=== PATIENT | female | born 1980 | race Caucasian/White ===

== ENCOUNTER → 2020-12-17 | Outpatient (CLI) | payer OTHER ==
[~2020-12-17] MED LIST: FLEXERIL 10 MG10 MG PO; FLONASE 0.05% N16 GM; IBUPROFEN400 MG PO; KEFLEX500 MG PO; PERCOCET 10-321 EACH PO; VITAMIN C 500500 MG PO
== END ==
LOC: KOH-I 08:40
DX: M79.672 Pain in left foot (principal)
CPT/HCPCS: 73630

== ENCOUNTER → 2021-01-05 | Outpatient (CLI) | payer OTHER | LOC: KOH-I 12-30 08:45 | DX: M79.672 Pain in left foot (principal); M72.2 Plantar fascial fibromatosis; M19.072 Primary osteoarthritis, left ankle and foot | CPT/HCPCS: 73718 ==

== ENCOUNTER → 2021-08-02 | Outpatient (CLI) | payer OTHER | LOC: KOH-I 10:00 | DX: M79.672 Pain in left foot (principal) | CPT/HCPCS: 73630 ==

== ENCOUNTER → 2022-07-06 | Outpatient (CLI) | payer OTHER ==
[~2022-07-06] MED LIST changes: +ASPIRIN EC81 MG PO; +AZELASTINE137 MCG/0.; +LEVOCETIRIZINE D5 MG PO; +LISINOPRIL10 MG PO; +PROAIR HFA8.5 GM INH; +SINGULAIR10 MG PO
[2022-07-06 11:47] LABS: HEMOGLOBIN 12.3 gm/dl (12.3-15.3); RED BLOOD COUNT 4.49 M/UL (4.00-5.10); WHITE BLOOD COUNT 7.7 K/UL (4.5-11.0)
[2022-07-06 12:07] LABS: BUN/CREATININE RATIO 15 (0-10)
== END ==
LOC: OPSV2 10:00
PROVIDERS: Podiatrist Foot & Ankle Surgery
DX: Z01.812 Encounter for preprocedural laboratory examination (principal); D36.10 Benign neoplasm of peripheral nerves and autonomic nervous system, unspecified
CPT/HCPCS: 80048; 85027

== ENCOUNTER → 2022-07-15 | Day surgery (SDC) | payer OTHER ==
[~2022-07-15] MED LIST changes: +ASPIRIN325 MG PO
== END | disposition home or self-care (01) ==
LOC: OR 05:54
DX: G57.82 Other specified mononeuropathies of left lower limb (principal); L98.9 Disorder of the skin and subcutaneous tissue, unspecified
CPT/HCPCS: C1713; J0690; J1100; J1170; J1885; J2001; J2405; J2704; J2795; J3370; Q4133